=== PATIENT | female | born 1950 | race Caucasian/White ===

== ENCOUNTER 2019-01-15 09:35 | Emergency (ER) | payer OTHER ==
--- OUTSIDE RECORDS SUMMARY | 2019-01-15 09:56 | XMS REPORT ---
:1950 [facility] Address [address] [place] [address] Dr. Delgado [address] [place] [id number] Care Team Providers Name Role Phone Unavailable Unavailable Unavailable Payers Payer Name Policy Type Policy Number Effective Date Expiration Date Problems This patient has no known problems. Allergies, Adverse Reactions, Alerts This patient has no known allergies or adverse reactions. Medications This patient has no known medications.
--- NOTE | 2019-01-15 10:50 | RAD REPORT ---
EXAM DESCRIPTION: RAD - Knee Left 3 View - 01/15/2019 10:38 am CLINICAL HISTORY: PAIN Fall, knee pain COMPARISON: No comparisons FINDINGS: Moderate osteoarthritic changes involve the medial joint compartment with joint space loss and small osteophytes. Small suprapatellar joint effusion. No acute fracture or dislocation.
--- NOTE | 2019-01-15 11:12 | ER ---
Nurse's Notes [facility] Name: Norma Kauffman Age: 68 yrs Sex: Female : 1950 Arrival Date: 01/15/2019 Time: 09:39 Bed 14 Private MD: Diagnosis: Pain in left knee Presentation: 01/15 10:06 Presenting complaint: Patient states: Fell two weeks ago and landed on my left knee, I sg can barely walk and the pain is worse when i try to stand on it, denies head injury or any other pain from fall at this time, reports having a knee brace in place but no change in the pain. Transition of care: patient was not received from another setting of care. Onset of symptoms was January 15, 2019. Risk Assessment: Do you want to hurt yourself or someone else? Patient reports no desire to harm self or others. Initial Sepsis Screen: Does the patient meet any 2 criteria? No. Patient's initial sepsis screen is negative. Does the patient have a suspected source of infection? No. Patient's initial sepsis screen is negative. Care prior to arrival: None. 10:06 Acuity: RAJNI 4 sg 10:06 Method Of Arrival: Wheelchair sg Historical: - Allergies: 10:08 PENICILLINS; sg - Home Meds: 10:08 amlodipine oral [Active]; sg - PMHx: 10:08 Hypertension; sg - PSHx: 10:08 None; sg - Immunization history:: Adult Immunizations not up to date. - Social history:: Smoking status: Patient/guardian denies using tobacco, Patient/guardian denies using alcohol, street drugs, The patient lives with family. - Ebola Screening: : Patient negative for fever greater than or equal to 101.5 degrees Fahrenheit, and additional compatible Ebola Virus Disease symptoms Patient denies exposure to infectious person Patient denies travel to an Ebola-affected area in the 21 days before illness onset No symptoms or risks identified at this time. - Family history:: not pertinent. Screenin:10 Abuse screen: Denies threats or abuse. Denies injuries from another. Nutritional ca1 screening: No deficits noted. Tuberculosis screening: No symptoms or risk factors identified. Fall Risk Gait- Impaired (20 pts.). Assessment: 10:00 General: Appears in no apparent distress. comfortable, Behavior is calm, cooperative, ca1 appropriate for age. Pain: Complains of pain in left knee Pain radiates to left leg Pain currently is 2 out of 10 on a pain scale. at worst was 10 out of 10 on a pain scale. Quality of pain is described as sharp, Pain began 2-3 days ago. Is episodic, Aggravated by repositioning, weight bearing. Neuro: Level of Consciousness is awake, alert, obeys commands, Oriented to person, place, time, situation. Cardiovascular: Heart tones S1 S2 present Capillary refill < 3 seconds Patient's skin is warm and dry. Pulses are all present. Respiratory: Airway is patent Respiratory effort is even, unlabored, Respiratory pattern is regular, symmetrical, Breath sounds are clear bilaterally. GI: Abdomen is flat, non-distended, Bowel sounds present X 4 quads. Abd is soft and non tender X 4 quads. : No deficits noted. No signs and/or symptoms were reported regarding the genitourinary system. EENT: No deficits noted. No signs and/or symptoms were reported regarding the EENT system. Derm: Skin is intact, is healthy with good turgor, Skin is pink, warm \T\ dry. Musculoskeletal: Circulation, motion, and sensation intact. Capillary refill < 3 seconds, Range of motion: limited in left knee. 10:48 Reassessment: Patient appears in no apparent distress at this time. Patient and/or ca1 family updated on plan of care and expected duration. Pain level reassessed. Patient is alert, oriented x 3, equal unlabored respirations, skin warm/dry/pink. 11:31 Reassessment: Patient appears in no apparent distress at this time. Patient is alert, ca1 oriented x 3, equal unlabored respirations, skin warm/dry/pink. 11:33 Reassessment: Pt reports to have a knee immobilizer at home. Pt instructed on use of ca1 Knee Immobilizer to alleviate pain. Verbalized understanding of instructions. Vital Signs: 10:08 Pulse 68; Resp 17; Temp 97.9; Pulse Ox 100% on R/A; Weight 70.31 kg; Height 5 ft. 3 in. sg (160.02 cm); Pain 10/10; 10:48 BP 147 / 69; Pulse 62; Resp 17 S; Pulse Ox 98% on R/A; ca1 11:30 BP 131 / 64; Pulse 65; Resp 18 S; Pulse Ox 97% on R/A; ca1 10:08 Body Mass Index 27.46 (70.31 kg, 160.02 cm) ED Course: 09:39 Patient arrived in ED. mr 09:56 Jessica Saldivar, RN is Primary Nurse. ca1 10:03 Geno Hammer MD is Attending Physician. ma2 10:07 Triage completed. sg 10:07 Arm band placed on. sg 10:10 Patient has correct armband on for positive identification. Bed in low position. Call ca1 light in reach. Side rails up X 1. Pulse ox on. NIBP on. Warm blanket given. 10:10 No provider procedures requiring assistance completed. ca1 10:39 Knee Left 3 View In Process Unspecified. EDMS 11:35 Patient did not have IV access during this emergency room visit. ca1 Administered Medications: 11:15 Drug: TORadol 60 mg Route: IM; Site: right gluteus; ca1 11:33 Follow up: Response: No adverse reaction; Pain is decreased ca1 Outcome: 11:12 Discharge ordered by . ma2 11:35 Discharged to home via wheelchair, with significant other. ca1 11:35 Condition: stable 11:35 Discharge instructions given to patient, Instructed on discharge instructions, follow up and referral plans. medication usage, Demonstrated understanding of instructions, follow-up care, medications, Prescriptions given X 2. 11:35 Patient left the ED. ca1 Signatures: Dispatcher [employer] EDMS Byron Bonilla RN RN Kenneth, Laurita ArellanoHenrietta RN RN Geno Hammer MD MD okJessica Koch RN RN ca1 Corrections: (The following items were deleted from the chart) 10:36 10:06 Presenting complaint: Patient states: Fell two weeks ago and landed on my right ss knee, I can barely walk and the pain is worse when i try to stand on it, denies head injury or any other pain from fall at this time, reports having a knee brace in place but no change in the pain sg
--- NOTE | 2019-01-15 11:13 | EDPHYS ---
Physician Documentation [facility] Name: Norma Kauffman Age: 68 yrs Sex: Female : 1950 Arrival Date: 01/15/2019 Time: 09:39 Bed 14 Private MD: ED Physician Geno Hammer HPI: 01/15 11:11 This 68 yrs old Female presents to ER via Wheelchair with complaints of Knee ma2 Pain. 11:11 Context: twisted knee. Onset: The symptoms/episode began/occurred gradually, 3 day(s) ma2 ago. Associated signs and symptoms: Pertinent negatives nausea, swelling, vomiting, weakness. Severity of symptoms: At their worst the symptoms were moderate, in the emergency department the symptoms are unchanged. Historical: - Allergies: 10:08 PENICILLINS; sg - Home Meds: 10:08 amlodipine oral [Active]; sg - PMHx: 10:08 Hypertension; sg - PSHx: 10:08 None; sg - Immunization history:: Adult Immunizations not up to date. - Social history:: Smoking status: Patient/guardian denies using tobacco, Patient/guardian denies using alcohol, street drugs, The patient lives with family. - Ebola Screening: : Patient negative for fever greater than or equal to 101.5 degrees Fahrenheit, and additional compatible Ebola Virus Disease symptoms Patient denies exposure to infectious person Patient denies travel to an Ebola-affected area in the 21 days before illness onset No symptoms or risks identified at this time. - Family history:: not pertinent. ROS: 11:11 Constitutional: Negative for fever, chills, and weight loss, Cardiovascular: Negative ma2 for chest pain, palpitations, and edema, Respiratory: Negative for shortness of breath, cough, wheezing, and pleuritic chest pain, Abdomen/GI: Negative for abdominal pain, nausea, diarrhea, and constipation. 11:11 All other systems are negative. Exam: 11:11 Constitutional: This is a well developed, well nourished patient who is awake, alert, ma2 and in no acute distress. Chest/axilla: Normal chest wall appearance and motion. Nontender with no deformity. No lesions are appreciated. Cardiovascular: Regular rate and rhythm with a normal S1 and S2. No gallops, murmurs, or rubs. Normal PMI, no JVD. No pulse deficits. Respiratory: Lungs have equal breath sounds bilaterally, clear to auscultation and percussion. No rales, rhonchi or wheezes noted. No increased work of breathing, no retractions or nasal flaring. Abdomen/GI: Soft, non-tender, with normal bowel sounds. No distension or tympany. No guarding or rebound. No evidence of tenderness throughout. Skin: Warm, dry with normal turgor. Normal color with no rashes, no lesions, and no evidence of cellulitis. MS/ Extremity: Pulses equal, no cyanosis. Neurovascular intact. Full, normal range of motion. Neuro: Awake and alert, GCS 15, oriented to person, place, time, and situation. Cranial nerves II-XII grossly intact. Motor strength 5/5 in all extremities. Sensory grossly intact. Cerebellar exam normal. Normal gait. Vital Signs: 10:08 Pulse 68; Resp 17; Temp 97.9; Pulse Ox 100% on R/A; Weight 70.31 kg; Height 5 ft. 3 in. sg (160.02 cm); Pain 10/10; 10:48 BP 147 / 69; Pulse 62; Resp 17 S; Pulse Ox 98% on R/A; ca1 11:30 BP 131 / 64; Pulse 65; Resp 18 S; Pulse Ox 97% on R/A; ca1 10:08 Body Mass Index 27.46 (70.31 kg, 160.02 cm) sg MDM: 10:03 Patient medically screened. ma2 11:11 Differential diagnosis: closed fracture, contusion, tendonitis. Data reviewed: vital ma2 signs, nurses notes. Counseling: I had a detailed discussion with the patient and/or guardian regarding: the historical points, exam findings, and any diagnostic results supporting the discharge/admit diagnosis, the presence of at least one elevated blood pressure reading (>120/80) during this emergency department visit, the need for outpatient follow up. Response to treatment: the patient's symptoms have markedly improved after treatment. 01/15 10:38 Order name: Knee Left 3 View; Complete Time: 11:13 EDMS Administered Medications: 11:15 Drug: TORadol 60 mg Route: IM; Site: right gluteus; ca1 11:33 Follow up: Response: No adverse reaction; Pain is decreased ca1 Disposition: 01/15/19 11:12 Discharged to Home. Impression: Pain in left knee. - Condition is Stable. - Discharge Instructions: Knee Pain, [id number]. - Prescriptions for Tylenol- Codeine #3 300-30 mg Oral Tablet - take 2 tablet by ORAL route every 6 hours As needed; 30 tablet. Prednisone 20 mg Oral Tablet - take 2 tablet by ORAL route once daily for 5 days; 10 tablet. - Medication Reconciliation Form, Thank You Letter, Antibiotic Education, Prescription Opioid Use form. - Follow up: Private Physician; When: Tomorrow; Reason: Continuance of care. Signatures: Dispatcher [employer] EDMD Byron Bonilla RN RN sg Geno Hammer MD MD ma2 Jessica Saldivar RN RN ca1 Corrections: (The following items were deleted from the chart) 10:38 10:10 Knee Right 3 View+RAD.RAD.BRZ ordered. EDMD EDMS 10:41 10:38 Knee Left 3 View+RAD.RAD.BRZ ordered. [facility] EDMS 11:35 11:12 01/15/2019 11:12 Discharged to Home. Impression: Pain in left knee. Condition is ca1 Stable. Forms are Medication Reconciliation Form, Thank You Letter, Antibiotic Education, Prescription Opioid Use. Follow up: Private Physician; When: Tomorrow; Reason: Continuance of care. issa
[2019-01-15] MEDS ORDERED: KETOROLAC 30 MG/ML INJ ONE (11:36)
== END 2019-01-15 11:35 | disposition home or self-care (01) ==
LOC: ER 09:35
DX: M25.562 Pain in left knee (principal); I10 Essential (primary) hypertension; Z88.0 Allergy status to penicillin
CPT/HCPCS: 96372; 99284